=== PATIENT | male | born 1965 | race Caucasian/White ===

== ENCOUNTER → 2018-11-23 | Outpatient (CLI) | payer MEDICARE ==
[~2018-11-23] MED LIST: DALMANE PO; DILAUDID8 MG PO; LIPITOR10 MG PO; LISINOPRIL40 MG PO; METHADONE HCL10 MG PO; METOPROLOL SUCC50 MG PO; MIRALAX PO; MORPHINE SULFAT60 MG PO; NEURONTIN800 MG PO; SOMA350 MG PO; XANAX0.5 MG PO
--- NOTE | 2018-11-23 11:48 | Diagnostic Imaging Report ---
Examination: MRI SPINE THORACIC WO, MRI SPINE LUMBAR WO CONTRAST History: Mid and low back pain that began 2 months ago that radiates down the back of the lower extremities with associated numbness and weakness. Comparison studies: None Technique: Sagittal T1 and STIR; axial, sagittal and coronal T2 Intravenous contrast: None. Findings: Alignment: Normal thoracic kyphosis and lumbar lordosis. No scoliosis. Thoracic cord: Normal in signal and morphology. The tip of the conus is at T12-L1. Soft tissues: No T2 hyperintense inflammatory changes. Paraspinal muscles: Preserved. No volume loss. Vertebrae: No compression fractures, infection or neoplasm. There is a nonaggressive and lipid poor 1.1 cm (craniocaudal dimension) hemangioma of the posterior T10 vertebral body. Degenerative changes: T5-T6: Small central disc protrusion. No foraminal or canal stenosis. T11-T12: Bilateral facet arthropathy. No canal or foraminal stenosis. Prior bilateral pedicle screw and posterior fixation at T11, T12, L4, L5 and S1. 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 There is a 1.9 x 1.1 x 2.2 cm (superoinferior x anteroposterior x transverse dimensions) fluid-filled sac seen in the midline posterior soft tissues at L5-S1. IMPRESSION: 1. Prior bilateral pedicle screw and posterior fixation at T11, T12, and from L4 through S1 with decompressive laminectomy from L4 through S1. 2. 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 3. Midline posterior soft tissue 1.9 x 1.1 x 2.2 cm seroma at L5-S1. Signed by: Dr. Aminah Rivera M.D. on 11/23/2018 11:44 AM
== END ==
LOC: MRI 07:35
PROVIDERS: ATTEND General Practice
DX: M54.6 Pain in thoracic spine (principal); M54.5 Low back pain; Z98.1 Arthrodesis status
CPT/HCPCS: 72146; 72148

== ENCOUNTER 2019-06-12 15:42 | Emergency (ER) | payer MEDICARE ==
[~2019-06-12] VITALS: Ht 177.8 cm; Wt 86.2 kg
--- OUTSIDE RECORDS SUMMARY | 2019-06-12 15:45 | XMS REPORT ---
Author [facility] Address Unknown Phone Unavailable Care Team Providers [employer] Salesperson Name Role Phone Vlad KELLEY Unavailable Unavailable Payers Payer Name Policy Type Policy Number Effective Date Expiration Date Problems This patient has no known problems. Allergies, Adverse Reactions, Alerts Allergy Name Allergy Type Status Severity Reaction(s) Onset Date Inactive Date Treating Clinician Comments butorphanol tartrate DA Active CT 2010-11-02 00:00:00 [address] 2010-11-02 00:00:[address] 2010-11-02 00:00:[address] 2010-11-02 00:00:00 Medications This patient has no known medications. Results Test Description Test Time Test Comments Text Results Atomic Results Result Comments MRI SPINE LUMBAR WO 2018-11-23 11:32:00 [place] [address] Patient Name: BEE ZARAGOZA MR #: [id number] : 1965 Age/Sex: 53/M Req #: [id number] Adm Physician: Ordered by: KRISTINA KELLEY Report #: [id number] Location: MRI Room/Bed: Procedure: [id number] MRI/MRI SPINE LUMBAR WO Exam Date: Exam Time: REPORT STATUS: Signed Examination: MRI SPINE THORACIC WO, MRI SPINE LUMBAR WO CONTRAST History: Mid and low back pain that began 2 months ago that radiates down the back of the lower extremities with associated numbness and weakness. Comparison studies: None Technique: Sagittal T1 and STIR; axial, sagittal and coronal T2 Intravenous contrast: None. Findings: Alignment: Normal thoracic kyphosis and lumbar lordosis. No scoliosis. Thoracic cord: Normal in signal and morphology. The tip of the conus is at T12-L1. Soft tissues: No T2 hyperintense inflammatory changes. Paraspinal muscles: Preserved. No volume loss. Vertebrae: No compression fractures, infection or neoplasm. There is a nonaggressive and lipid poor 1.1 cm (craniocaudal dimension) hemangioma of the posterior T10 vertebral body. Degenerative changes: T5-T6: Small central disc protrusion. No foraminal or canal stenosis. T11-T12: Bilateral facet arthropathy. No canal or foraminal stenosis. Prior bilateral pedicle screw and posterior fixation at T11, T12, L4, L5 and S1. 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 There is a 1.9 x 1.1 x 2.2 cm (superoinferior x anteroposterior x transverse dimensions) fluid-filled sac seen in the midline posterior soft tissues at L5-S1. IMPRESSION: 1. Prior bilateral pedicle screw and posterior fixation at T11, T12, and from L4 through S1 with decompressive laminectomy from L4 through S1. 2. 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 3. Midline posterior soft tissue 1.9 x 1.1 x 2.2 cm seroma at L5-S1. Signed by: Dr. Aminah Rivera M.D. on 11/23/2018 11:44 AM Dictated By: AMINAH MONTIEL MD [id number] Transcribed By: OMARI on 11/23/18 1148 COPY TO: KRISTINA KELLEY MRI SPINE THORACIC WO 2018-11-23 11:32:00 [address], [place] [address] Patient Name: BEE ZARAGOZA MR #: [id number] : 1965 Age/Sex: 53/M Req #: [id number] Adm Physician: Ordered by: KRISTINA KELLEY Report #: [id number] Location: MRI Room/Bed: Procedure: [id number] MRI/MRI SPINE THORACIC WO Exam Date: Exam Time: REPORT STATUS: Signed Examination: MRI SPINE THORACIC WO, MRI SPINE LUMBAR WO CONTRAST History: Mid and low back pain that began 2 months ago that radiates down the back of the lower extremities with associated numbness and weakness. Comparison studies: None Technique: Sagittal T1 and STIR; axial, sagittal and coronal T2 Intravenous contrast: None. Findings: Alignment: Normal thoracic kyphosis and lumbar lordosis. No scoliosis. Thoracic cord: Normal in signal and morphology. The tip of the conus is at T12-L1. Soft tissues: No T2 hyperintense inflammatory changes. Paraspinal muscles: Preserved. No volume loss. Vertebrae: No compression fractures, infection or neoplasm. There is a nonaggressive and lipid poor 1.1 cm (craniocaudal dimension) hemangioma of the posterior T10 vertebral body. Degenerative changes: T5-T6: Small central disc protrusion. No foraminal or canal stenosis. T11-T12: Bilateral facet arthropathy. No canal or foraminal stenosis. Prior bilateral pedicle screw and posterior fixation at T11, T12, L4, L5 and S1. 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 There is a 1.9 x 1.1 x 2.2 cm (superoinferior x anteroposterior x transverse dimensions) fluid-filled sac seen in the midline posterior soft tissues at L5-S1. IMPRESSION: 1. Prior bilateral pedicle screw and posterior fixation at T11, T12, and from L4 through S1 with decompressive laminectomy from L4 through S1. 2. 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 3. Midline posterior soft tissue 1.9 x 1.1 x 2.2 cm seroma at L5-S1. Signed by: Dr. Aminah Rivera M.D. on 11/23/2018 11:44 AM Dictated By: AMINAH MONTIEL MD [id number] Transcribed By: OMARI on 11/23/18 1144 COPY TO: KRISTINA KELLEY
--- NOTE | 2019-06-12 16:43 | Diagnostic Imaging Report ---
EXAMINATION: HIP RIGHT 2-3 VW (+/- PELVIS) INDICATION: Foreign body COMPARISON: None FINDINGS: AP image of the pelvis and AP and frog-leg images of the right hip demonstrate no acute fracture or dislocation. No radiopaque foreign bodies to correspond with clinical concern of a needle in the right hip soft tissues. Alignment is anatomic. Status post lumbosacral fusion with hardware intact. Mild degenerative changes of both hip joints. IMPRESSION: No radiopaque foreign body. No acute osseous injury. Signed by: Eber Aguilar MD on 06/12/2019 4:40 PM
== END 2019-06-12 18:04 | disposition home or self-care (01) ==
LOC: ER 15:42
DX: Z00.00 Encounter for general adult medical examination without abnormal findings (principal); I10 Essential (primary) hypertension; J44.9 Chronic obstructive pulmonary disease, unspecified; F41.9 Anxiety disorder, unspecified
CPT/HCPCS: 99284

== ENCOUNTER → 2019-11-29 | Outpatient (CLI) | payer MEDICARE ==
[~2019-11-29] MED LIST changes: +AMBIEN10 MG PO; +FUROSEMIDE40 MG PO; +OXYCODONE HCL20 M1 PO; +RESPICLICK INH; +TRILIGY INH
[2019-11-29 10:47] LABS: CHOL/HDL RATIO 6.6 (3.9-4.7)
== END ==
LOC: LAB 10:11
PROVIDERS: ATTEND General Practice
DX: E78.5 Hyperlipidemia, unspecified (principal)
CPT/HCPCS: 36415; 80061

== ENCOUNTER → 2020-02-08 | Outpatient (CLI) | payer MEDICARE ==
[2020-02-08 09:23] LABS: BASOPHILS # (AUTO) 0.1 (0.0-0.1); BASOPHILS % 0.7 % (0.0-1.0); EOSINOPHILS # (AUTO) 0.1 (0.0-0.4); HEMATOCRIT 47.1 % (38.2-49.6); HEMOGLOBIN 14.8 g/dL (14.0-18.0); LYMPHOCYTES # (AUTO) 1.6 (1.0-3.2); LYMPHOCYTES % 20.7 % (18.0-39.1); MEAN CORPUSCULAR HEMOGLOBIN 27.3 pg (28-32); MEAN CORPUSCULAR HGB CONC 31.4 g/dL (31-35); MEAN CORPUSCULAR VOLUME 86.7 fL (81-99); MONOCYTES # (AUTO) 0.6 (0.2-0.8); MONOCYTES % 7.2 % (4.4-11.3); NEUTROPHILS # (AUTO) 5.4 (2.1-6.9); PLATELET COUNT 315 x10e3/uL (140-360); RED BLOOD COUNT 5.43 x10e6/uL (4.3-5.7); RED CELL DISTRIBUTION WIDTH 14.1 % (11.7-14.4)
[2020-02-08 09:41] LABS: ALANINE AMINOTRANSFERASE 18 IU/L (0-55); ALBUMIN 3.6 g/dL (3.5-5.0); ALBUMIN/GLOBULIN RATIO 1.1 (0.8-2.0); ALKALINE PHOSPHATASE 65 IU/L (40-150); ANION GAP 10.1 mmol/L (8-16); BLOOD UREA NITROGEN 8 mg/dL (7-26); BUN/CREATININE RATIO 8 (6-25); CALCIUM 8.8 mg/dL (8.4-10.2); CARBON DIOXIDE 26 mmol/L (22-29); CHLORIDE 105 mmol/L (98-107); EST GLOMERULAR FILTRATION RATE > 60 ML/MIN (60-); GLUCOSE 89 mg/dL (74-118); POTASSIUM 4.1 mmol/L (3.5-5.1); SODIUM 137 mmol/L (136-145)
== END ==
LOC: LAB 09:07
PROVIDERS: ATTEND General Practice
DX: R63.4 Abnormal weight loss (principal); R61 Generalized hyperhidrosis
CPT/HCPCS: 36415; 80053; 85025; 93005

== ENCOUNTER 2022-10-03 12:30 | Observation (INO) | payer MEDICARE ==
[~2022-10-03] VITALS: Ht 170.2 cm; Wt 64.7 kg
[2022-10-03] MEDS ORDERED: ONDANSETRON HCL INJ 2MG/ML 2ML 2 MG/ML VIAL IV PRN (15:15)
[2022-10-03] MEDS ORDERED: ACETAMINOPHEN 325 MG TAB PO PRN (15:15)
[2022-10-03] MEDS ORDERED: Morphine 2mg Syringe 2 MG/ML SYR IV PRN (15:15)
[2022-10-03 15:49] VITALS: BP 152/115
[2022-10-03] MEDS ORDERED: LOSARTAN POTAS100 MG PO (15:51)
[2022-10-03] MEDS ORDERED: HYDROCODON-ACE1 EAC9 PO (15:51)
[2022-10-03] MEDS ORDERED: XANAX1 MG PO (15:51)
[2022-10-03] MEDS ORDERED: METOPROLOL TAR100 MG PO (15:51)
[2022-10-03] MEDS ORDERED: ATORVASTATIN CA10 MG PO (15:51)
[2022-10-03 15:55] VITALS: BP 152/114
[2022-10-03 15:58] VITALS: BP 152/115
[2022-10-03] MEDS ORDERED: ALPRAZOLAM 1 MG TAB PO PRN (16:00)
[2022-10-03] MEDS ORDERED: CLONIDINE HCL 0.1 MG TAB PO PRN (16:15)
[2022-10-03 16:21] LABS: CREATINE KINASE MB 1.1 ng/mL (0-5.0)
[2022-10-03] MEDS ORDERED: METOPROLOL TARTRATE 50 MG TAB PO SCH (17:00)
[2022-10-03] MEDS ORDERED: LOSARTAN POTASSIUM 100 MG TAB PO SCH (17:00)
[2022-10-03] MEDS ORDERED: HYDROCODONE/APAP 10MG-325MG TAB PO SCH (17:00)
[2022-10-04] MEDS ORDERED: ASPIRIN 81 MG ENTERIC COATED PO SCH (09:00)
[2022-10-04] MEDS ORDERED: PRAVASTATIN 20 MG TAB PO SCH (09:00)
== END 2022-10-03 17:48 | disposition left against medical advice (07) ==
LOC: MED/SURG3 12:30 → INTOOBSV 12:30
PROVIDERS: ADMIT Internal Medicine; ATTEND Internal Medicine
DX: R07.89 Other chest pain (principal); I10 Essential (primary) hypertension; G89.4 Chronic pain syndrome; F41.9 Anxiety disorder, unspecified; E78.00 Pure hypercholesterolemia, unspecified; Z20.822 Contact with and (suspected) exposure to COVID-19
CPT/HCPCS: 36415; 82550; 82553; 84484; G0378; J2270; J2405

== ENCOUNTER 2024-10-14 18:59 | Emergency (ER) | payer MEDICARE ==
[~2024-10-14] VITALS: Ht 170.2 cm; Wt 64.4 kg
[~2024-10-14 18:59] MED LIST changes: +ATORVASTATIN CA10 MG PO; +HYDROCODON-ACE1 EAC9 PO; +LOSARTAN POTAS100 MG PO; +METOPROLOL TAR100 MG PO; +XANAX1 MG PO
[2024-10-14 19:05] VITALS: PULSE 87; RESP 18; TEMP 99; O2SAT 98
[2024-10-14] MEDS ORDERED: CYCLOBENZAPRINE5 MG PO (19:22)
[2024-10-14] MEDS ORDERED: NAPROSYN500 MG PO (19:22)
== END 2024-10-14 19:26 | disposition home or self-care (01) ==
LOC: ER 19:09
DX: M54.9 Dorsalgia, unspecified (principal); G89.29 Other chronic pain; U07.1 COVID-19; Z76.5 Malingerer [conscious simulation]; F17.210 Nicotine dependence, cigarettes, uncomplicated
CPT/HCPCS: 99282